=== PATIENT | female | born 1985 | race Hispanic/Latino ===

== ENCOUNTER 2018-01-29 22:41 | Emergency (ER) | payer OTHER, SELFPAY ==
[2018-01-30] MEDS ORDERED: Ketorolac Tromethamine 60 MG/2 ML VIAL ONE (01:24)
== END 2018-01-30 01:56 | disposition home or self-care (01) ==
LOC: ERS 22:41
DX: M75.101 Unspecified rotator cuff tear or rupture of right shoulder, not specified as traumatic (principal); J45.909 Unspecified asthma, uncomplicated; F32.9 Major depressive disorder, single episode, unspecified
CPT/HCPCS: 96372; J1885

== ENCOUNTER 2018-04-06 22:42 | Emergency (ER) | payer SELFPAY ==
--- NOTE | 2018-04-07 08:09 | RAD ---
RIGHT HAND 3 VIEWS: Date: 04/06/18 HISTORY: Fall with injury to hand and right upper extremity. FINDINGS: Carpals appear intact. Metacarpals and phalanges appear intact. IMPRESSION: No acute osseous abnormality identified. POS: MITCH
--- NOTE | 2018-04-07 08:10 | RAD ---
RIGHT KNEE 4 VIEWS: Date: 04/06/18 INDICATION: Fall with injury to right knee. FINDINGS: No evidence of fracture identified. Mild prepatellar soft tissue fullness. No evidence of joint effus ion. IMPRESSION: No acute osseous abnormality identified. POS: MITCH
== END 2018-04-07 01:31 | disposition home or self-care (01) ==
LOC: ERS 22:42
DX: S80.212A Abrasion, left knee, initial encounter (principal); S80.211A Abrasion, right knee, initial encounter; M79.641 Pain in right hand; J45.909 Unspecified asthma, uncomplicated; F32.9 Major depressive disorder, single episode, unspecified; W01.0XXA Fall on same level from slipping, tripping and stumbling without subsequent striking against object, initial encounter

== ENCOUNTER 2019-05-13 23:24 | Emergency (ER) | payer SELFPAY ==
[2019-05-14] MEDS ORDERED: HYDROcodone/Acetaminophen 5/325 mg Tablet ONE (00:20)
[2019-05-14 01:53] LABS: Bilirubin Negative (Negative); Blood, Urine 1+ (Negative); Clarity Clear (Clear); Glucose, Urine (Dipstick) Normal (Negative); Leukocyte Negative Leu/uL (Negative); Nitrite Negative (Negative); Pregnancy Test - Urine (BHCG) Negative (Negative); Pregu Control Background? CLEAR/WHITE (CLR/WHITE); Pregu Control Bar Appear? YES (CONTROL BAR); Protein, Urine (Dipstick) Negative (Neg-Trace); RBC/HPF 0-3 HPF (0-3); Specific Gravity 1.023 (1.002-1.036); Squamous Epithelial 0-3 HPF (0-3); Urobilinogen Normal mg/dL (Less than 2); WBC/HPF 0-3 HPF (0-3)
[2019-05-14 01:57] LABS: Bacteria/HPF Rare-Few HPF (None Seen)
--- NOTE | 2019-05-14 08:15 | RAD ---
TWO VIEWS OF THE CHEST: COMPARISON: 04/26/2015. HISTORY: Fell off a ladder and landed on chest with chest pain. FINDINGS: Two views of the chest show normal sized cardiomediastinal silhouette. There is no evidence of consol idation, mass, or pleural effusion. The bones are unremarkable. IMPRESSION: No evidence of acute cardiopulmonary disease. POS: CET
--- NOTE | 2019-05-14 08:37 | RAD ---
SINGLE VIEW OF THE PELVIS: COMPARISON: None. HISTORY: Fall with pelvic pain. FINDINGS: A single view of the pelvis shows questionable mottling of the pelvic bones on either side of the pub ic symphysis. This may be artifactual from the air in the rectum, but nondisplaced pubic fractures c annot be excluded. No fracture of either hip is seen. IMPRESSION: Questionable fractures surrounding the pubic symphysis. Correlate with point tenderness in this loca tion. CODE T POS: CET
== END 2019-05-14 03:29 | disposition home or self-care (01) ==
LOC: ERS 23:24
DX: S90.512A Abrasion, left ankle, initial encounter (principal); S90.511A Abrasion, right ankle, initial encounter; R07.82 Intercostal pain; J45.909 Unspecified asthma, uncomplicated; F32.9 Major depressive disorder, single episode, unspecified; W11.XXXA Fall on and from ladder, initial encounter
CPT/HCPCS: 71046; 72170; 81003; 81015; 81025; 93005

== ENCOUNTER 2021-11-10 15:35 | Emergency (ER) | payer SELFPAY ==
[2021-11-10 16:07] LABS: #Basophils 0.1 thou/uL (0.0-0.2); #Eosinphils 0.1 thou/uL (0.0-0.7); #Lymphocytes 3.5 thou/uL (1.20-3.40); #Monocytes 0.7 thou/uL (0.11-0.59); #Neutrophils 3.9 thou/uL (1.40-6.50); %Eosinophils 1.2 % (0.0-10.0); %Lymphocytes 42.4 % (21.0-51.0); %Monocytes 8.8 % (0.0-10.0); %Neutrophils 46.7 % (42.0-75.0); Mean Corpuscular HGB CONC 32.3 g/dL (32.0-36.0); Mean Corpuscular Hemoglobin 28.5 pg (27.0-31.0); Mean Corpuscular Volume 88.4 fL (78.0-98.0); Mean Platelet Volume 8.7 fL (7.4-10.4); Platelet Count 266 thou/uL (130-400); White Blood Cell (WBC) Count 8.4 thou/uL (4.8-10.8)
[2021-11-10 16:31] LABS: ALT (SGPT) 14 U/L (8-55); AST (SGOT) 16 U/L (5-34); Albumin 4.5 g/dL (3.5-5.0); Alkaline Phosphatase 59 U/L (40-110); Anion Gap 11 mmol/L (10-20); BUN (Urea Nitrogen) 9 mg/dL (7.0-18.7); Bilirubin, Total 0.5 mg/dL (0.2-1.2); Calc. Creatinine Clearance 0 mL/min (70-130); Calcium 9.4 mg/dL (7.8-10.44); Carbon Dioxide 25 mmol/L (22-29); Chloride 105 mmol/L (98-107); Globulin 3.1 g/dL (2.4-3.5); Glucose 91 mg/dL (70-105); Lipase 12 U/L (8-78); Potassium 3.5 mmol/L (3.5-5.1); Protein, Total 7.6 g/dL (6.0-8.3); Sodium 137 mmol/L (136-145)
== END 2021-11-10 16:23 | disposition left against medical advice (07) ==
LOC: ERS 15:35
DX: R07.9 Chest pain, unspecified (principal)
CPT/HCPCS: 36415; 80053; 83690; 84484; 85025; 93005

== ENCOUNTER 2022-09-30 22:44 | Emergency (ER) | payer SELFPAY ==
[2022-09-30 23:17] LABS: #Basophils 0.1 thou/uL (0.0-0.2); #Lymphocytes 2.4 thou/uL (1.20-3.40); #Monocytes 0.6 thou/uL (0.11-0.59); #Neutrophils 3.6 thou/uL (1.40-6.50); %Basophils 1.4 % (0.0-1.0); %Eosinophils 0.7 % (0.0-10.0); %Lymphocytes 35.7 % (21.0-51.0); %Monocytes 8.4 % (0.0-10.0); %Neutrophils 53.7 % (42.0-75.0); Hemoglobin 14.4 g/dL (12.0-16.0); Mean Corpuscular HGB CONC 33.2 g/dL (32.0-36.0); Mean Corpuscular Hemoglobin 29.5 pg (27.0-31.0); Mean Corpuscular Volume 88.8 fl (78.0-98.0); Platelet Count 259 10x3/uL (130-400); RBC Distribution Width 12.3 % (11.5-14.5); Red Blood Cell (RBC) Count 4.89 mill/uL (4.20-5.40); White Blood Cell (WBC) Count 6.6 10x3/uL (4.8-10.8)
[2022-09-30 23:35] LABS: ALT (SGPT) 13 U/L (8-55); AST (SGOT) 13 U/L (5-34); Albumin 4.5 g/dL (3.5-5.0); Alkaline Phosphatase 59 U/L (40-110); Anion Gap 13 mmol/L (10-20); BUN (Urea Nitrogen) 10 mg/dL (7.0-18.7); Bilirubin, Total 0.8 mg/dL (0.2-1.2); Calc. Creatinine Clearance 0 mL/min (70-130); Calcium 9.6 mg/dL (7.8-10.44); Carbon Dioxide 23 mmol/L (22-29); Chloride 106 mmol/L (98-107); Estimated GFR 99; Globulin 3.3 g/dL (2.4-3.5); Glucose 94 mg/dL (70-105); Potassium 3.7 mmol/L (3.5-5.1); Protein, Total 7.8 g/dL (6.0-8.3); Sodium 138 mmol/L (136-145)
[2022-09-30 23:50] LABS: BHCG - Serum Negative (NEGATIVE); Pregs Control Background? CLEAR/WHITE (CLR/WHITE); Pregs Control Bar Appear? YES (CONTROL BAR)
[2022-10-01] MEDS ORDERED: Ketorolac Tromethamine 30 MG/ML VIAL ONE (00:33)
[2022-10-01] MEDS ORDERED: Ondansetron PF 4 MG/2 ML Vial ONE (00:33)
[2022-10-01] MEDS ORDERED: Midazolam HCl 2 mg/2 ml Vial ONE (00:33)
== END 2022-10-01 02:35 | disposition home or self-care (01) ==
LOC: ERS 22:44
DX: R51.9 Headache, unspecified (principal); M62.838 Other muscle spasm
CPT/HCPCS: 36415; 70450; 80053; 84484; 84703; 85025; 96374; 96375; J1885; J2250; J2405